=== PATIENT | male | born 1995 ===

== ENCOUNTER 2021-12-01 08:30 | Emergency (ER) | payer MEDICAID ==
[~2021-12-01] VITALS: Ht 180.3 cm; Wt 54.5 kg
[2021-12-01 08:41] VITALS: BP 120/71; TEMP 98
[2021-12-01 09:22] VITALS: PULSE 60
== END 2021-12-01 09:22 | disposition home or self-care (01) ==
LOC: COL.ER 08:30
DX: F32.A Depression, unspecified (principal); F17.200 Nicotine dependence, unspecified, uncomplicated; Z28.310 Unvaccinated for COVID-19

== ENCOUNTER 2022-01-04 20:22 | Emergency (ER) | payer MEDICAID ==
[~2022-01-04] VITALS: Ht 180.3 cm; Wt 56.8 kg
[2022-01-04 20:27] VITALS: BP 117/59; TEMP 98.5
[2022-01-04 21:50] VITALS: PULSE 67
== END 2022-01-04 21:51 | disposition home or self-care (01) ==
LOC: COL.ER 20:22
DX: S83.91XA Sprain of unspecified site of right knee, initial encounter (principal); Z28.310 Unvaccinated for COVID-19; X50.1XXA Overexertion from prolonged static or awkward postures, initial encounter